=== PATIENT | female | born 1940 | race Caucasian/White ===

== ENCOUNTER → 2017-12-08 | Outpatient (REF) | payer MEDICARE ==
[~2017-12-08] MED LIST: ADULT ASPIRIN L81 MG PO; AMOXICILLIN/CL875 MG PO; AMOXICILLIN500 MG PO; ASPIRIN81 MG PO; ATORVASTATIN CA40 MG PO; AUGMENTIN875TAB OR; B COMPLEX PO; CALCIUM + D600 MG PO; CO Q10200 MG PO; CYCLOBENZAPR5 MG PO; E400400 UNIT PO; ELIQUIS5 MG PO; FISH OIL1200 M1 OR; FUROSEMIDE20 MG PO; HUMULIN 70/30 SC; ISOSORB MONO30 MG PO; KEFLEX500 MG PO; LANTUS; LEVEMIR SC; LIPITOR40 M1 PO; LIPITOR80 M1 PO; LISINOPRIL20 MG PO; Levaquin OR; METAMUCIL28 %; METO25TAB PO; METOPROL TAR25 M1 PO; OMEGA 31000 MG PO; OMEPRAZOLE40 MG PO; PERCOCET 5/321 COMBO PO; PRILOSEC40 MG PO; PROAIR HFA IN; QVAR80 MCG IN; ROBITUSSIN AC10 ML PO; SIMVASTATIN40 MG OR; TRAMADOL HCL50 MG PO; VIT B; VIT E COMPLX400 UNIT PO; VITAMIN A8000 UNI1 PO; VITAMIN C1000 MG PO; ZESTRIL10 M1 PO; ZOFRAN ODT4 MG PO; [UNRECOGNIZED DRUG - OTHER] PO; [UNRECOGNIZED DRUG - REMARK] SC
== END | disposition home or self-care (01) ==
LOC: LAB 09:35
PROVIDERS: ATTEND Internal Medicine Endocrinology, Diabetes & Metabolism
DX: E10.65 Type 1 diabetes mellitus with hyperglycemia (principal)